=== PATIENT | female | born 1945 | race Caucasian/White ===

== ENCOUNTER 2018-06-25 13:41 | Emergency (ER) | payer MEDICARE ==
[2018-06-25] MEDS ORDERED: ONDANSETRON 4 MG/2 ML VIAL IVP STA (13:49)
--- NOTE | 2018-06-25 13:58 | ED ---
General Adult HPI - General Chief complaint: Nausea/Vomiting/Diarrhea Stated complaint: Dehyrdated Time Seen by Provider: 06/25/18 13:49 Source: patient Mode of arrival: ambulatory Limitations: no limitations - Related Data Home Medications Medication Instructions Recorded Confirmed Losartan Potassium [Cozaar] 100 mg PO DAILY 05/07/15 06/25/18 Metoprolol Tartrate [Lopressor] 50 mg PO BID 05/07/15 06/25/18 Potassium Chloride [Klor-Con 10] 10 meq PO DAILY 05/07/15 06/25/18 DULoxetine HCL [Cymbalta] 60 mg PO DAILY 06/25/18 06/25/18 Hydrochlorothiazide 12.5 mg PO DAILY 06/25/18 06/25/18 Simvastatin [Zocor] 40 mg PO DAILY 06/25/18 06/25/18 Previous Rx's Medication Instructions Recorded Metoclopramide [Reglan] 10 mg PO TID #12 tab 06/25/18 Allergies Allergy/AdvReac Type Severity Reaction Status Date / Time duloxetine Allergy Unknown Verified 06/25/18 14:47 Review of Systems ROS Statement: Those systems with pertinent positive or pertinent negative responses have been documented in the HPI. ROS Other: All systems not noted in ROS Statement are negative. Past Medical History Past Medical History: Hyperlipidemia, Hypertension History of Any Multi-Drug Resistant Organisms: None Reported Past Surgical History: No Surgical Hx Reported Past Psychological History: Depression Smoking Status: Never smoker Past Alcohol Use History: None Reported Past Drug Use History: None Reported General Exam Limitations: no limitations Course Vital Signs 06/25/18 06/25/18 06/25/18 13:44 15:03 16:23 Temperature 98.1 F 98.2 F Pulse Rate 78 69 61 Respiratory 20 18 18 Rate Blood Pressure 201/81 161/85 145/71 O2 Sat by Pulse 99 100 99 Oximetry Medical Decision Making - Medical Decision Making Dictation was produced using Loc[employer] dictation software. please excuse any grammatical, word or spelling errors. Chief Complaint: 72-year-old female with past medical history of hypertension and dyslipidemia presents with nausea and vomiting. History of Present Illness: 72-year-old female. She is had symptoms of nausea and vomiting since yesterday. Patient has any abdominal pain. Patient states that she has been having flulike symptoms over the past 2-3 days. Patient states she is unable to take her medications secondary to the vomiting. States her vomiting is nonbilious not bloody. No diarrhea. Patient denies any abdominal pain. Patient denies any surgeries in the past. Denies any exacerbating or mitigating factors. The ROS documented in this emergency department record has been reviewed and confirmed by me. Those systems with pertinent positive or negative responses have been documented in the HPI. All other systems are other negative and/or noncontributory. PHYSICAL EXAM: General Impression: Alert and oriented x3, nauseated HEENT: Normocephalic atraumatic, extra-ocular movements intact, pupils equal and reactive to light bilaterally, mucous membranes moist. Cardiovascular: Heart regular rate and rhythm, S1&S2 audible, no murmurs, rubs or gallops Chest: Lungs clear to auscultation bilaterally, no rhonchi, no wheeze, no rales Abdomen: Bowel sounds present, abdomen soft, non-tender, non-distended, no organomegaly Musculoskeletal: Pulses present and equal in all extremities, no peripheral edema Motor: Power 5/5 bilaterally, no focal deficits noted Neurological: CN II-XII grossly intact, no focal motor or sensory deficits noted Skin: Intact with no visualized rashes Psych: Normal affect and mood ED course: 72-year-old female chief complaint of nausea and vomiting. Upon arrival shows blood pressure to 1/81, rest of vital signs within acceptable limits.labs are unremarkable. Patient given intravenous fluids, antiemetics. Urinalysis unremarkable. Patient reevaluated with improvement of symptoms. Patient given prescription for Reglan. Advised to follow-up with primary care physician upon discharge. Patient tolerate by mouth bedside prior to discharge. Patient an George without consultations. EKG interpretation: Ventricular rate 74, normal sinus rhythm, LA interval 172, care is 140, QTc 499. No LA prolongation, no QTC prolongation, no ST or T-wave changes noted. EKG compared to 05/07/2015 showing no changes. Overall, this EKG is unremarkable - Lab Data Result diagrams: 06/25/18 14:08 06/25/18 14:08 Lab Results 06/25/18 06/25/18 06/25/18 Range/Units 14:08 14:08 16:51 WBC 6.7 (3.8-10.6) k/uL RBC 4.62 (3.80-5.40) m/uL Hgb 15.3 (11.4-16.0) gm/dL Hct 45.9 (34.0-46.0) % MCV 99.6 (80.0-100.0) fL MCH 33.2 (25.0-35.0) pg MCHC 33.3 (31.0-37.0) g/dL RDW 12.2 (11.5-15.5) % Plt Count 183 (150-450) k/uL Neutrophils % 66 % Lymphocytes % 29 % Monocytes % 3 % Eosinophils % 0 % Basophils % 0 % Neutrophils # 4.4 (1.3-7.7) k/uL Lymphocytes # 1.9 (1.0-4.8) k/uL Monocytes # 0.2 (0-1.0) k/uL Eosinophils # 0.0 (0-0.7) k/uL Basophils # 0.0 (0-0.2) k/uL Sodium 140 (137-145) mmol/L Potassium 4.4 (3.5-5.1) mmol/L Chloride 106 (98-107) mmol/L Carbon Dioxide 25 (22-30) mmol/L Anion Gap 9 mmol/L BUN 16 (7-17) mg/dL Creatinine 0.62 (0.52-1.04) mg/dL Est GFR (CKD-EPI)AfAm >90 (>60 ml/min/1.73 sqM) Est GFR (CKD-EPI)NonAf 90 (>60 ml/min/1.73 sqM) Glucose 167 H (74-99) mg/dL Calcium 10.1 (8.4-10.2) mg/dL Magnesium 1.9 (1.6-2.3) mg/dL Total Bilirubin 0.9 (0.2-1.3) mg/dL AST 35 (14-36) U/L ALT 29 (9-52) U/L Alkaline Phosphatase 86 (38-126) U/L Total Protein 7.6 (6.3-8.2) g/dL Albumin 4.8 (3.5-5.0) g/dL Lipase 126 (23-300) U/L Urine Color Yellow Urine Appearance Clear (Clear) Urine pH 7.5 (5.0-8.0) Ur Specific Logan 1.020 (1.001-1.035) Urine Protein 2+ H (Negative) Urine Glucose (UA) Negative (Negative) Urine Ketones 2+ H (Negative) Urine Blood Negative (Negative) Urine Nitrite Negative (Negative) Urine Bilirubin Negative (Negative) Urine Urobilinogen <2.0 (<2.0) mg/dL Ur Leukocyte Esterase Negative (Negative) Urine RBC 13 H (0-5) /hpf Urine WBC 2 (0-5) /hpf Urine Mucus Few H (None) /hpf Disposition Clinical Impression: Nausea & vomiting Disposition: HOME SELF-CARE Condition: Good Instructions (If sedation given, give patient instructions): Acute Nausea and Vomiting (ED) Prescriptions: Metoclopramide [Reglan] 10 mg PO TID #12 tab Is patient prescribed a controlled substance at d/c from ED?: No Referrals: Booker Epstein MD [Primary Care Provider] - 1-2 days Time of Disposition: 16:53
[2018-06-25 14:45] LABS: Basophils % (A) 0 %; Eosinophils % (A) 0 %; HCT 45.9 % (34.0-46.0); HGB 15.3 gm/dL (11.4-16.0); Lymphocytes # (A) 1.9 k/uL (1.0-4.8); Lymphocytes % (A) 29 %; MCH 33.2 pg (25.0-35.0); MCHC 33.3 g/dL (31.0-37.0); MCV 99.6 fL (80.0-100.0); Mean Platelet Volume 7.2; Monocytes # (A) 0.2 k/uL (0-1.0); Monocytes % (A) 3 %; Neutrophils # (A) 4.4 k/uL (1.3-7.7); Neutrophils % (A) 66 %; Platelet Count 183 k/uL (150-450); RBC 4.62 m/uL (3.80-5.40); RDW 12.2 % (11.5-15.5); WBC 6.7 k/uL (3.8-10.6)
[2018-06-25 14:55] LABS: ALT 29 U/L (9-52); AST 35 U/L (14-36); Albumin 4.8 g/dL (3.5-5.0); Alkaline Phosphatase 86 U/L (38-126); Anion Gap 9 mmol/L; Blood Urea Nitrogen 16 mg/dL (7-17); Calcium 10.1 mg/dL (8.4-10.2); Carbon Dioxide 25 mmol/L (22-30); Chloride 106 mmol/L (98-107); Glucose 167 mg/dL (74-99); Lipase 126 U/L (23-300); Magnesium 1.9 mg/dL (1.6-2.3); Potassium 4.4 mmol/L (3.5-5.1); Sodium 140 mmol/L (137-145); Total Bilirubin 0.9 mg/dL (0.2-1.3); Total Protein 7.6 g/dL (6.3-8.2)
[2018-06-25] MEDS ORDERED: METOCLOPRAMIDE 5 MG/ML 2 ML VIAL IVP STA (14:55)
--- NOTE | 2018-06-25 14:57 | XR ---
Abdomen HISTORY: Nausea and vomiting Frontal view of the abdomen on 2 images correlated to prior abdomen 05/07/2015 Surgical clips are present in the right groin. Multiple calcifications are present within the pelvis, many of these are likely phleboliths. No evident bowel obstruction or pneumoperitoneum. Lung bases a re clear. Cardiac leads present. Apical scarring vascular calcifications noted in the aorta. Degenerative disc changes in the visualized spine, there is mild spinal curvature. IMPRESSION: Nonobstructive bowel gas pattern.
[2018-06-25] MEDS ORDERED: MAGNESIUM OXIDE 400 MG TAB PO STA (15:00)
[2018-06-25 15:04] VITALS: RESP 18
[2018-06-25 16:25] VITALS: TEMP 98.2
[2018-06-25 17:13] LABS: Appearance,Urine Clear (Clear); Bilirubin,Urine Negative (Negative); Blood,Urine Negative (Negative); Color,Urine Yellow; Glucose,Urine (UA) Negative (Negative); Ketones,Urine 2+ (Negative); Leukocyte Esterase,Urine Negative (Negative); Mucus,Urine Few /hpf; Nitrite,Urine Negative (Negative); PH, Urine 7.5 (5.0-8.0); Protein,Urine 2+ (Negative); RBC,Urine 13 /hpf (0-5); Urobilinogen,Urine <2.0 mg/dL (<2.0)
[2018-06-25 17:36] VITALS: BP 147/83; PULSE 68
== END 2018-06-25 17:35 | disposition home or self-care (01) ==
LOC: EC 13:41
DX: R11.2 Nausea with vomiting, unspecified (principal); E78.5 Hyperlipidemia, unspecified; I10 Essential (primary) hypertension; F32.9 Major depressive disorder, single episode, unspecified; Z79.899 Other long term (current) drug therapy; Z88.8 Allergy status to other drugs, medicaments and biological substances
CPT/HCPCS: 36415; 93005; 80053; 83690; 83735; 85025; 81001; 74018; 99284; 96374; 96375; J2765; J2405

== ENCOUNTER → 2019-05-02 | Outpatient (CLI) | payer MEDICARE ==
[2019-05-02 11:41] LABS: Basophils % (A) 0 %; Eosinophils # (A) 0.1 k/uL (0-0.7); Eosinophils % (A) 2 %; HCT 41.8 % (34.0-46.0); HGB 14.1 gm/dL (11.4-16.0); Lymphocytes # (A) 1.8 k/uL (1.0-4.8); Lymphocytes % (A) 36 %; MCH 33.8 pg (25.0-35.0); MCHC 33.8 g/dL (31.0-37.0); MCV 100.1 fL (80.0-100.0); Mean Platelet Volume 6.7; Monocytes # (A) 0.2 k/uL (0-1.0); Monocytes % (A) 4 %; Neutrophils # (A) 2.8 k/uL (1.3-7.7); Neutrophils % (A) 56 %; Platelet Count 184 k/uL (150-450); RBC 4.17 m/uL (3.80-5.40); WBC 5.1 k/uL (3.8-10.6)
[2019-05-02 11:49] LABS: Appearance,Urine Clear (Clear); Bacteria,Urine Rare /hpf; Bilirubin,Urine Negative (Negative); Blood,Urine Negative (Negative); Color,Urine Yellow; Glucose,Urine (UA) Negative (Negative); Ketones,Urine Negative (Negative); Leukocyte Esterase,Urine Moderate (Negative); Mucus,Urine Rare /hpf; Nitrite,Urine Negative (Negative); PH, Urine 7.5 (5.0-8.0); Protein,Urine Negative (Negative); RBC,Urine 5 /hpf (0-5); Specific Gravity,Urine 1.015 (1.001-1.035); Squamous Epithelial Cell,Urine 1 /hpf (0-4); Urobilinogen,Urine <2.0 mg/dL (<2.0); WBC,Urine 3 /hpf (0-5)
[2019-05-02 18:00] LABS: African American GFR (CKD) 84.2 (60.0-200.0); Albumin 4.3 g/dL (3.80-4.90); Albumin/Globulin Ratio 2.26 (1.60-3.17); Anion Gap 6.8 mmol/L (4.00-12.00); Calcium 9.6 mg/dL (8.7-10.3); Carbon Dioxide 29.2 mmol/L (21.6-31.8); Chol/HDL Ratio 2.91; Globulin 1.9 g/dL (1.6-3.3); LDL Cholesterol,Calculated 98.2 mg/dL (0.0-131.0); Non-African American GFR(CKD) 72.6 (60.0-200.0); Potassium 3.8 mmol/L (3.5-5.5); Total Bilirubin 0.8 mg/dL (0.3-1.2); Total Protein 6.2 g/dL (6.2-8.2); VLDL Calculation 23.8 mg/dL (5.00-40.00)
== END | disposition home or self-care (01) ==
LOC: LABWHC1 10:02
PROVIDERS: ATTEND Orthopaedic Surgery
DX: E55.9 Vitamin D deficiency, unspecified (principal); M79.671 Pain in right foot; S92.354D Nondisplaced fracture of fifth metatarsal bone, right foot, subsequent encounter for fracture with routine healing
CPT/HCPCS: 36415; 80053; 80061; 81001; 82306; 84443; 85025

== ENCOUNTER → 2023-01-16 | Outpatient (CLI) | payer MEDICARE ==
--- NOTE | 2023-01-18 08:48 | CA ---
Transthoracic Echo Report Name: Ca Duckworth Age: 77 Gender: F : 1945 Exam Date: 01/16/2023 15:08 Exam Location: [place] [facility] Ht (in): 63 Wt (lb): 180 Ordering Physician: Price Mcginnis DO Attending/Referring Phys: Mix House Tender Alicia Davalos [facility] Procedure CPT: Indications: I48.91 ARTIAL FIBRILLATION Cardiac Hx: Technical Quality: Fair Contrast 1: Total Dose (mL): Contrast 2: Total Dose (mL): MEASUREMENTS (Male / Female) Normal Values 2D ECHO LV Diastolic Diameter PLAX 3.8 cm 4.2 - 5.9 / 3.9 - 5.3 cm LV Systolic Diameter PLAX 3.3 cm IVS Diastolic Thickness 0.8 cm 0.6 - 1.0 / 0.6 - 0.9 cm LVPW Diastolic Thickness 1.1 cm 0.6 - 1.0 / 0.6 - 0.9 cm LV Relative Wall Thickness 0.5 LVOT Diameter 2.1 cm LV Diastolic Volume MOD BP 62.8 cm??? 67 - 155 / 56 - 104 cm??? LV Systolic Volume MOD BP 40.8 cm??? 22 - 58 / 19 - 49 cm??? LV Ejection Fraction MOD BP 35.1 % >= 55 % LV Cardiac Index MOD BP 1024.4 cm???/min???m??? LV Diastolic Volume MOD 4C 53.2 cm??? LV Systolic Volume MOD 4C 37.6 cm??? LV Ejection Fraction MOD 4C 29.5 % LV Cardiac Index MOD 4C 728.9 cm???/min???m??? LV Diastolic Length 4C 7.6 cm LV Systolic Length 4C 6.7 cm LV Diastolic Volume MOD 2C 73.4 cm??? LV Systolic Volume MOD 2C 44.4 cm??? LV Ejection Fraction MOD 2C 39.5 % LV Cardiac Index MOD 2C 1346.8 cm???/min???m??? LV Diastolic Length 2C 7.7 cm LV Systolic Length 2C 6.7 cm Ascending Aorta Diameter 3.1 cm M-MODE Aortic Root Diameter MM 2.7 cm LA Systolic Diameter MM 4.4 cm LA Ao Ratio MM 1.6 AV Cusp Separation MM 1.9 cm DOPPLER AV Peak Velocity 112.0 cm/s AV Peak Gradient 5.0 mmHg AV Mean Velocity 77.2 cm/s AV Mean Gradient 2.7 mmHg AV Velocity Time Integral 20.3 cm LVOT Peak Velocity 85.5 cm/s LVOT Peak Gradient 2.9 mmHg LVOT Velocity Time Integral 15.2 cm LVOT Stroke Volume 51.0 cm??? LVOT Stroke Volume Index 27.6 ml/m??? LVOT Cardiac Index 2369.1 cm???/min???m??? AV Area Cont Eq vti 2.5 cm??? AV Area Cont Eq pk 2.6 cm??? Mitral E Point Velocity 95.7 cm/s MV Deceleration Time 226.1 ms LV E' Lateral Velocity 7.5 cm/s Mitral E to LV E' Lateral Ratio 12.8 LV E' Septal Velocity 6.0 cm/s Mitral E to LV E' Septal Ratio 16.0 TR Peak Velocity 231.1 cm/s TR Peak Gradient 21.4 mmHg Right Atrial Pressure 8.0 mmHg Pulmonary Artery Systolic Pressu 29.4 mmHg Right Ventricular Systolic Press 29.4 mmHg FINDINGS Left Ventricle Mildly increased posterior wall thickness. Left ventricular cavity size normal. Severely decreased left ventricular ejection fraction. Left ventricular ejection fraction is estimated at 30-35%. Mid to distal inferior and inferoseptal wall appears hypokinetic Right Ventricle Normal right ventricular size. Right Atrium Normal right atrial size. Left Atrium Moderate left atrial dilatation. Mitral Valve Mitral valve thickened. Trace mitral regurgitation. Aortic Valve Aortic valve sclerosis. Trileaflet aortic valve. No aortic regurgitation. Tricuspid Valve Structurally normal tricuspid valve. Trace to mild tricuspid regurgitation. Pulmonic Valve Pulmonic valve not well visualized. Pericardium No pericardial effusion. Aorta Normal size aortic root and proximal ascending aorta. CONCLUSIONS Normal LV size. Severe LV dysfunction with LVEF estimated at 30-35% Mid to distal inferior and inferoseptal wall hypokinesia Moderate left atrial dilatation No significant valvular disease Patient is in A. fib during the study with heart rate around 85 beats a minute No prior echo to compare Previewed by: Dr Craig Hatch (Electronically Signed) Final Date: 18 January 2023 08:47
== END | disposition home or self-care (01) ==
LOC: RADECHMAIN 14:47
PROVIDERS: ATTEND Family Medicine
DX: I08.1 Rheumatic disorders of both mitral and tricuspid valves (principal); I48.91 Unspecified atrial fibrillation
CPT/HCPCS: 93306

== ENCOUNTER 2023-10-12 14:02 | Inpatient (IN) | payer MEDICARE ==
--- NOTE | 2023-10-12 14:29 | ED ---
Chest Pain HPI - General Source: patient, family, RN notes reviewed Mode of arrival: wheelchair Limitations: no limitations <Kayla Wilson - Last Filed: 10/12/23 14:28> <Lamont Romo - Last Filed: 10/12/23 17:14> - General Stated Complaint: AFIB Time Seen by Provider: 10/12/23 14:28 - History of Present Illness Initial Comments: Note: 78-year-old female presented to the ER with a chief complaint of chest pain and shortness of breath. Patient has a past medical history significant for atrial fibrillation and is currently taking Eliquis. She is scheduled for an ablation on with Dr. Gibbs. reports for the past 24 hours she has been having difficulty sleeping as she goes into A-fib soon as she lays down. (Kayla Wilson) This is a 78-year-old female who presents to the emergency department with a chief complaint of being awake and on my because of palpitations. Patient currently has no complaints she denies chest pain or shortness of breath even though it states from the triage vazquez that she was having shortness of breath and chest pain patient states she was just being kept awake because of what she believed to be her A-fib and she supposed to have a scheduled ablation on . Patient denies any fever or chills. Patient is a very poor historian secondary to dementia After family arrived patient's family stated that she kept complaining of chest pain throughout the evening and any exertion made it worse. (Lamont Romo) - Related Data Home Medications Medication Instructions Recorded Confirmed Losartan Potassium [Cozaar] 100 mg PO DAILY 05/07/15 10/12/23 Amiodarone [Cordarone] 200 mg PO BID 10/12/23 10/12/23 Apixaban [Eliquis] 5 mg PO BID 10/12/23 10/12/23 Atorvastatin [Lipitor] 20 mg PO HS 10/12/23 10/12/23 Donepezil [Aricept] 5 mg PO HS 10/12/23 10/12/23 Furosemide [Lasix] 20 mg PO BID 10/12/23 10/12/23 Memantine [Namenda] 10 mg PO BID 10/12/23 10/12/23 Metoprolol Succinate [Metoprolol 25 mg PO DAILY 10/12/23 10/12/23 Succinate ER] Venlafaxine HCl [Effexor XR] 75 mg PO DAILY 10/12/23 10/12/23 traZODone HCL [Desyrel] 50 mg PO HS 10/12/23 10/12/23 Allergies Allergy/AdvReac Type Severity Reaction Status Date / Time duloxetine AdvReac "Lots' of Verified 10/12/23 16:34 side effects, brand is ok Review of Systems ROS Other: All systems not noted in ROS Statement are negative. <Kayla Wilson - Last Filed: 10/12/23 14:28> ROS Other: All systems not noted in ROS Statement are negative. <Lamont Romo - Last Filed: 10/12/23 17:14> ROS Statement: Those systems with pertinent positive or pertinent negative responses have been documented in the HPI. Past Medical History Past Medical History: Hyperlipidemia, Hypertension History of Any Multi-Drug Resistant Organisms: None Reported Past Surgical History: No Surgical Hx Reported Past Psychological History: Depression Past Alcohol Use History: None Reported Past Drug Use History: None Reported <Kayla Wilson - Last Filed: 10/12/23 14:28> General Exam <Kayla Wilson - Last Filed: 10/12/23 14:28> <Lamont Romo - Last Filed: 10/12/23 17:14> - General Exam Comments Initial Comments: Visual Physical Exam General: Well-appearing, nontoxic, no acute distress. Head: Normocephalic, atraumatic Eyes: PERRLA, EOMI ENT: Airway patent Chest: Nonlabored breathing Skin: No visual rash, normal skin tone Neuro: Alert and oriented 3 Musculoskeletal: No gross abnormalities (Kayla Wilson) GENERAL: Patient is well-developed and well-nourished. Patient is nontoxic and well- hydrated and is in no acute distress. ENT: Neck is soft and supple. No significant lymphadenopathy is noted. Oropharynx is clear. Moist mucous membranes. Neck has full range of motion without eliciting any pain. EYES: The sclera were anicteric and conjunctiva were pink and moist. Extraocular movements were intact and pupils were equal round and reactive to light. Eyelids were unremarkable. PULMONARY: Unlabored respirations. Good breath sounds bilaterally. No audible rales rhonchi or wheezing was noted. CARDIOVASCULAR: There is a regular rate and rhythm without any murmurs gallops or rubs. ABDOMEN: Soft and nontender with normal bowel sounds. SKIN: Skin is clear with no lesions or rashes and otherwise unremarkable. NEUROLOGIC: Patient is alert and oriented x 2. Cranial nerves II through XII are grossly intact. Motor and sensory are also intact. Normal speech, volume and content. Symmetrical smile. MUSCULOSKELETAL: Normal extremities with adequate strength and full range of motion. LYMPHATICS: No significant lymphadenopathy is noted PSYCHIATRIC: Normal psychiatric evaluation. (Lamont Romo) Course Vital Signs 10/12/23 14:56 Temperature 98.3 F Pulse Rate 99 Respiratory 20 Rate Blood Pressure 122/85 O2 Sat by Pulse 98 Oximetry Chest Pain MDM <Kayla Wilson - Last Filed: 10/12/23 14:28> <Lamont Romo - Last Filed: 10/12/23 17:14> - MDM I performed the quick note portion of this chart. Electronically signed by Kayla Wilson PA-C (Kayla Wilson) EKG is interpreted by myself. EKG shows atrial fibrillation at 94 bpm QRS is 153 QT interval is 423 QTc is 475. Patient has a left bundle branch block which was seen on previous EKG Was pt. sent in by a medical professional or institution ([facility]LE[facility]ure, FOXING CUTTING MACHINE OPERATOR, urgent care, hospital, or prison...) When possible be specific @ -No Did you speak to anyone other than the patient for history (EMS, parent, family, police, friend...)? What history was obtained from this source @ -Patient's friend came in and gave most of the history because of patient's severe dementia Did you review nursing and triage notes (agree or disagree)? Why? @ -I reviewed and agree with nursing and triage notes Were old charts reviewed (outside hosp., previous admission, EMS record, old EKG, old radiological studies, urgent care reports/EKG's, prison records)? Report findings @ -I reviewed an old EKG and did confirm that the left bundle branch block that I see today was on previous EKGs. Differential Diagnosis (chest pain, altered mental status, abdominal pain women, abdominal pain men, vaginal bleeding, weakness, fever, dyspnea, syncope, headache, dizziness, GI bleed, back pain, seizure, CVA, palpatations, mental health, musculoskeletal)? @ -Differential Chest Pain: Stable Angina, Unstable Angina, STEMI, NSTEMI Aortic Dissection, Pneumothorax, Musculoskeletal, Esophageal Spasm GERD, Cholecystitis, Pancreatitis, Zoster, this is not meant to be an all-inclusive list. EKG interpreted by me (3pts min.). @ -As above X-rays interpreted by me (1pt min.). @ -None done CT interpreted by me (1pt min.). @ -None done U/S interpreted by me (1pt. min.). @ -None done What testing was considered but not performed or refused? (CT, X-rays, U/S, labs)? Why? @ -None What meds were considered but not given or refused? Why? @ -None Did you discuss the management of the patient with other professionals (professionals i.e. , PA, FOXING CUTTING MACHINE OPERATOR, lab, RT, psych nurse, social research assistant, safety clothing and equipment developer, teacher, search and rescue officer, social work case manager)? Give summary @ -[facility] Was smoking cessation discussed for >3mins.? @ -No Was critical care preformed (if so, how long)? @ -No Were there social determinants of health that impacted care today? How? (Homelessness, low income, unemployed, alcoholism, drug addiction, transportation, low edu. Level, literacy, decrease access to med. care, [facility], rehab)? @ -No Was there de-escalation of care discussed even if they declined (Discuss DNR or withdrawal of care, Hospice)? DNR status @ -No What co-morbidities impacted this encounter? (DM, HTN, Smoking, COPD, CAD, Cancer, CVA, ARF, Chemo, Hep., AIDS, mental health diagnosis, sleep apnea, morbid obesity)? @ -None Was patient admitted / discharged? Hospital course, mention meds given and route, prescriptions, significant lab abnormalities, going to OR and other pertinent info. @ -Patient's lab work came back within normal range except for a little bit of low potassium which I replaced. Patient no longer had any chest pain. [facility] I wrote admitting orders Undiagnosed new problem with uncertain prognosis? @ -No Drug Therapy requiring intensive monitoring for toxicity (Heparin, Nitro, Insulin, Cardizem)? @ -No Were any procedures done? @ -No Diagnosis/symptom? @ -Chest pain Acute, or Chronic, or Acute on Chronic? @ -Acute Uncomplicated (without systemic symptoms) or Complicated (systemic symptoms)? @ -Complicated Side effects of treatment? @ -No Exacerbation, Progression, or Severe Exacerbation? @ -No Poses a threat to life or bodily function? How? (Chest pain, USA, NC, pneumonia, PE, COPD, DKA, ARF, appy, cholecystitis, CVA, Diverticulitis, Homicidal, Suicidal, threat to staff... and all critical care pts) @ -Yes this can lead to an NC which can lead to endorgan dysfunction or (Lamont Romo) Disposition <Kayla Wilson - Last Filed: 10/12/23 14:28> Time of Disposition: 17:04 <Lamont Romo - Last Filed: 10/12/23 17:14> Clinical Impression: Chest pain, Palpitations, Hypokalemia Disposition: ADMITTED IP TO THIS HOSP Referrals: Price Mcginnis DO [Primary Care Provider] - 1-2 days
--- NOTE | 2023-10-12 15:43 | XR ---
EXAMINATION TYPE: XR chest 2V DATE OF EXAM: 10/12/2023 3:38 PM CLINICAL INDICATION:Female, 78 years old with history of Chest Pain; COMPARISON: Chest radiographs from 10/12/2023. TECHNIQUE: XR chest 2V Frontal and lateral views of the chest. FINDINGS: Lungs/Pleura: There is no evidence of pleural effusion, focal consolidation, or pneumothorax. Pulmonary vascularity: Unremarkable. Heart/mediastinum: Cardiomediastinal silhouette is unremarkable. Musculoskeletal: No acute osseous pathology. Increased kyphotic curvature to the thorax. Other findings: None IMPRESSION: 1. Possible small pleural effusions versus atelectasis in the lung bases. 2. COPD changes.
[2023-10-12 15:57] LABS: Basophils # (A) 0.1 k/uL (0-0.2); Basophils % (A) 1 %; Eosinophils # (A) 0.1 k/uL (0-0.7); Eosinophils % (A) 1 %; HCT 44.8 % (34.0-46.0); HGB 14.5 gm/dL (11.4-16.0); Lymphocytes # (A) 2.6 k/uL (1.0-4.8); Lymphocytes % (A) 35 %; MCH 33.8 pg (25.0-35.0); MCHC 32.4 g/dL (31.0-37.0); MCV 104.4 fL (80.0-100.0); Macrocytosis Slight; Mean Platelet Volume 8.8; Monocytes # (A) 0.4 k/uL (0-1.0); Monocytes % (A) 5 %; Neutrophils # (A) 4.2 k/uL (1.3-7.7); Neutrophils % (A) 56 %; Platelet Count 194 k/uL (150-450); RBC 4.29 m/uL (3.80-5.40); RDW 13.2 % (11.5-15.5); WBC 7.6 k/uL (3.8-10.6)
[2023-10-12 16:07] LABS: ALT 56 U/L (4-34); AST 57 U/L (14-36); African American GFR (CKD) 54 (>60 ml/min/1.73 sqM); Albumin 4.1 g/dL (3.5-5.0); Alkaline Phosphatase 175 U/L (38-126); Anion Gap 9 mmol/L; Blood Urea Nitrogen 25 mg/dL (7-17); Calcium 9.2 mg/dL (8.4-10.2); Carbon Dioxide 26 mmol/L (22-30); Chloride 108 mmol/L (98-107); Glucose 97 mg/dL (74-99); INR 1.3 (<1.2); Non-African American GFR(CKD) 47 (>60 ml/min/1.73 sqM); Partial Thromboplastin Time 23.4 sec (22.0-30.0); Potassium 3.3 mmol/L (3.5-5.1); Prothrombin Time 13.4 sec (10.0-12.5); Sodium 143 mmol/L (137-145); Total Protein 6.7 g/dL (6.3-8.2)
[2023-10-12] MEDS ORDERED: NITROGLYCERIN SL TABS 0.4 MG TAB SUBLINGUAL PRN (17:05)
[2023-10-12] MEDS ORDERED: Potassium Replacement Protocol 1 EACH MISC MISCELLANE PRN (17:14)
[2023-10-12] MEDS: ASPIRIN 81 MG PO STA (17:23)
[2023-10-12] MEDS: POTASSIUM CHLORIDE ER 20 MEQ TAB.ER PO SCH (17:24)
[2023-10-12] MEDS: NITROGLYCERIN OINT 1 INCH/GM PACKET TOPICAL SCH (17:24)
[2023-10-12] MEDS: FUROSEMIDE 20 MG TAB PO SCH (18:39)
[2023-10-12] MEDS: traZODone HCL 50 MG TAB PO SCH (22:46)
[2023-10-12] MEDS: ATORVASTATIN 20 MG TAB PO SCH (22:46)
[2023-10-12] MEDS: APIXABAN 5 MG TAB PO SCH (22:46)
[2023-10-12] MEDS: AMIODARONE 200 MG TAB PO SCH (22:47)
[2023-10-12] MEDS: MEMANTINE 10 MG TAB PO SCH (22:47)
[2023-10-13] MEDS ORDERED: HEPARIN SODIUM,PORCINE (1 ML) 2,500 UNIT in SODIUM CHLORIDE 0.9% 250 ML IRRIGATION PRN (07:00)
[2023-10-13] MEDS ORDERED: HEPARIN SODIUM,PORCINE 10,000 UNIT in SODIUM CHLORIDE 0.9% 1,000 ML IRRIGATION PRN (07:00)
[2023-10-13] MEDS: ACETAMINOPHEN TAB 325 MG TAB PO STA (07:51)
[2023-10-13] MEDS ORDERED: ASPIRIN 325 MG TAB PO SCH (09:00)
[2023-10-13] MEDS: METOPROLOL SUCCINATE (ER) 25 MG TAB.ER.24H PO SCH (09:15)
--- NOTE | 2023-10-13 09:57 | P.CRDCN ---
History of Present Illness History of present illness: HISTORY OF PRESENT ILLNESS: This is a 78-year-old female with a past medical history significant for cardiomyopathy, congestive heart failure, atrial fibrillation, hypertension, and dementia. Patient follows in the office with Dr. Gibbs. We have been asked to see the patient in consultation for chest pain and atrial fibrillation. Patient examined at the bedside. The patient is a poor historian. There is no family present at the time of examination. According to the ER, patient presented to the hospital with chest pain and palpitations. The patient states she is unable to recall what symptoms brought her to the hospital. Her main complaint is that she has been unable to sleep for the past few days. She also stated that she was unable to sleep last night as staff was in her room frequently and she reports feeling tired this morning. She denies any chest pain or pressure at the time of examination. She does report feeling mild palpitations. It is noted that the patient was just seen in the office on 10/06/2023. Plan was for cardiac catheterization secondary to worsening ejection fraction. This is scheduled for 10/15/2023 patient was also started on amiodarone taper. Additional plans for VÍCTOR and cardioversion in the next 2 to 3 weeks and long- term plans for possible biventricular AICD. DIAGNOSTICS: - EKG reveals atrial fibrillation with left bundle branch block. - Chest xray possible small pleural effusions versus atelectasis in the lung bases. COPD changes.. - Laboratory data: WBC 7.6. Hemoglobin 14.5. Platelet count 194. Sodium 143. Potassium 3.3. BUN 25. Creatinine 1.12. AST 57. ALT 56. Troponin negative x 3. - Current home cardiac medications include losartan 100 mg daily, amiodarone 200 mg twice a day, Lasix 20 mg twice a day, Eliquis 5 mg twice a day, Lipitor 20 mg at night, metoprolol succinate 25 mg daily. - Most recent echocardiogram obtained in December 2022 revealing ejection fraction 30 to 35%, mid to distal inferior and inferior septal wall hypokinesis, trace MR, trace to mild TR -Repeat echocardiogram performed in the office on 09/25/2023 revealed ejection fraction 20 to 25%, large hypokinetic area of inferior, inferior septal, and anterior septal meraz. Small hypokinetic area of the inferior lateral wall at the mid wall. There is small hypokinetic areas of the anterior and lateral meraz at the apex. -Patient underwent Lexiscan stress test in February 2023 which was negative for inducible ischemia. Ejection fraction of 35%. REVIEW OF SYSTEMS: At the time of my exam: CONSTITUTIONAL: Denies fever or chills. HEENT: Denies blurred vision, vision changes, or eye pain. Denies hemoptysis CARDIOVASCULAR: Denies chest pain. Denies orthopnea. Denies PND. Denies palpitations RESPIRATORY: Denies shortness of breath. GASTROINTESTINAL: Denies abdominal pain. Denies nausea or vomiting. HEMATOLOGIC: Denies bleeding disorders. GENITOURINARY: Denies any blood in urine. SKIN: Denies pruitis. Denies rash. PHYSICAL EXAM: VITAL SIGNS: Reviewed. GENERAL: Well-developed in no acute distress. HEENT: Head is normocephalic. Pupils are equal, round. Sclerae anicteric. Mucous membranes of the mouth are moist. Neck supple. No JVD or thyromegaly LUNGS: Respirations even and unlabored. Lungs essentially clear to auscultation bilaterally. HEART: Irregular rate and rhythm. S1 and S2 heard. ABDOMEN: Soft. Nondistended. Nontender. EXTREMITIES: Normal range of motion. No clubbing or cyanosis. Peripheral pulses intact. No lower extremity edema NEUROLOGIC: Awake and alert. Oriented x 3. ASSESSMENT: Palpitations Persistent atrial fibrillation Left bundle branch block Worsening cardiomyopathy, ischemic versus nonischemic, Chronic heart failure with reduced EF, currently euvolemic Hypertension Dementia PLAN: No need to repeat echocardiogram as this was performed in the office on 09/25/2023 Continue additional cardiac medications Hold Eliquis Patient to undergo cardiac cath this afternoon with Dr. Gibbs Further recommendations pending patient course Nurse practitioner note has been reviewed by physician. Signing provider agrees with the documented findings, assessment, and plan of care documented by DRESSING ROOM ATTENDANT as a scribe. Past Medical History Past Medical History: Hyperlipidemia, Hypertension History of Any Multi-Drug Resistant Organisms: None Reported Past Surgical History: No Surgical Hx Reported Past Psychological History: No Psychological Hx Reported Smoking Status: Never smoker Past Alcohol Use History: None Reported Past Drug Use History: None Reported Medications and Allergies Home Medications Medication Instructions Recorded Confirmed Type Losartan Potassium [Cozaar] 100 mg PO DAILY 05/07/15 10/12/23 History Amiodarone [Cordarone] 200 mg PO BID 10/12/23 10/12/23 History Apixaban [Eliquis] 5 mg PO BID 10/12/23 10/12/23 History Atorvastatin [Lipitor] 20 mg PO HS 10/12/23 10/12/23 History Donepezil [Aricept] 5 mg PO HS 10/12/23 10/12/23 History Furosemide [Lasix] 20 mg PO BID 10/12/23 10/12/23 History Memantine [Namenda] 10 mg PO BID 10/12/23 10/12/23 History Metoprolol Succinate [Metoprolol 25 mg PO DAILY 10/12/23 10/12/23 History Succinate ER] Venlafaxine HCl [Effexor XR] 75 mg PO DAILY 10/12/23 10/12/23 History traZODone HCL [Desyrel] 50 mg PO HS 10/12/23 10/12/23 History Allergies Allergy/AdvReac Type Severity Reaction Status Date / Time duloxetine AdvReac "Lots' of Verified 10/12/23 16:34 side effects, brand is ok Physical Exam Vitals: Vital Signs Temp Pulse Pulse Resp BP BP Pulse Ox 10/13/23 03:53 97.4 F L 97 17 124/92 95 10/12/23 20:56 97.3 F L 112 H 17 126/76 95 10/12/23 20:47 85 16 120/83 96 10/12/23 19:12 109 H 15 119/74 96 10/12/23 17:22 92 18 133/99 96 10/12/23 14:56 98.3 F 99 20 122/85 98 Intake and Output 10/12/23 10/13/23 10/13/23 22:59 06:59 14:59 Other: # Voids 1 1 Weight 73.482 kg Results 10/12/23 15:44 10/12/23 15:44 Cardiac Enzymes 10/12/23 10/12/23 10/12/23 Range/Units 15:44 15:44 19:14 AST 57 H (14-36) U/L Troponin I 0.025 0.023 (0.000-0.034) ng/mL 10/12/23 Range/Units 21:48 AST (14-36) U/L Troponin I 0.022 (0.000-0.034) ng/mL Coagulation 10/12/23 Range/Units 15:44 PT 13.4 H (10.0-12.5) sec APTT 23.4 (22.0-30.0) sec CBC 10/12/23 Range/Units 15:44 WBC 7.6 (3.8-10.6) k/uL RBC 4.29 (3.80-5.40) m/uL Hgb 14.5 (11.4-16.0) gm/dL Hct 44.8 (34.0-46.0) % Plt Count 194 (150-450) k/uL Comprehensive Metabolic Panel 10/12/23 Range/Units 15:44 Sodium 143 (137-145) mmol/L Potassium 3.3 L (3.5-5.1) mmol/L Chloride 108 H (98-107) mmol/L Carbon Dioxide 26 (22-30) mmol/L BUN 25 H (7-17) mg/dL Creatinine 1.12 H (0.52-1.04) mg/dL Glucose 97 (74-99) mg/dL Calcium 9.2 (8.4-10.2) mg/dL AST 57 H (14-36) U/L ALT 56 H (4-34) U/L Alkaline Phosphatase 175 H (38-126) U/L Total Protein 6.7 (6.3-8.2) g/dL Albumin 4.1 (3.5-5.0) g/dL Current Medications Generic Name Dose Route Start Last Admin Trade Name Freq PRN Reason Stop Dose Admin Amiodarone HCl 200 mg 10/12/23 21:00 10/12/23 22:47 Amiodarone 200 Mg Tab PO 200 mg BID ADAN Administration Apixaban 5 mg 10/12/23 21:00 10/12/23 22:46 Apixaban 5 Mg Tab PO 5 mg BID ADAN Administration Protocol Aspirin 325 mg 10/13/23 09:00 Aspirin 325 Mg Tab PO DAILY [facility] Atorvastatin Calcium 20 mg 10/12/23 21:00 10/12/23 22:46 Atorvastatin 20 Mg Tab PO 20 mg HS ADAN Administration Furosemide 20 mg 10/12/23 18:00 10/12/23 18:39 Furosemide 20 Mg Tab PO 20 mg BID@0900,1600 ADAN Administration Memantine 10 mg 10/12/23 21:00 10/12/23 22:47 Memantine 10 Mg Tab PO 10 mg BID ADAN Administration Metoprolol Succinate 25 mg 10/13/23 09:00 Metoprolol Succinate (Er) 25 Mg Tab.Er.24h PO DAILY ADAN Miscellaneous Information 1 each 10/12/23 17:14 Potassium Replacement Protocol 1 Each Misc MISCELLANE DAILY PRN Per Protocol Protocol Nitroglycerin 0.4 mg 10/12/23 17:05 Nitroglycerin Sl Tabs 0.4 Mg Tab SUBLINGUAL Q5M PRN Chest Pain Nitroglycerin 1 inch 10/12/23 18:00 10/13/23 05:10 Nitroglycerin Oint 1 Inch/Gm Packet TOPICAL Not Given Q6HR ADAN Trazodone HCl 50 mg 10/12/23 21:00 10/12/23 22:46 Trazodone Hcl 50 Mg Tab PO 50 mg HS ADAN Administration Intake and Output 10/12/23 10/13/23 10/13/23 22:59 06:59 14:59 Other: # Voids 1 1 Weight 73.482 kg 10/12/23 15:44 10/12/23 15:44
[2023-10-13] MEDS ORDERED: ALPRAZolam 0.5 MG TAB PO PRN (09:58)
[2023-10-13] MEDS ORDERED: NITROGLYCERIN SL TABS 0.4 MG TAB SUBLINGUAL PRN (09:58)
[2023-10-13] MEDS ORDERED: ALPRAZolam 0.25 MG TAB PO PRN (09:58)
[2023-10-13] MEDS: ASPIRIN 325 MG TAB PO STA (10:42)
[2023-10-13] MEDS: ATORVASTATIN 80 MG TAB PO STA (10:42)
[2023-10-13] MEDS: SODIUM CHLORIDE 0.9% 1,000 ML in EMPTY BAG 1 BAG IV SCH (10:43)
--- NOTE | 2023-10-13 11:29 | P.HPIM ---
History of Present Illness 78-year-old pleasant female came in with complaints of palpitations found to be in atrial fibrillation with rapid ventricular rate patient had hospitalization for the same complaint recently. Patient has history of cardiomyopathy with EF of around 20 to 25% patient denies any shortness of breath orthopnea or paroxysmal nocturnal dyspnea although chest x-ray did show mild pulmonary edema BNP is not available at this time. Patient also had some wall motion abnormalities because of which patient will require cardiac catheterization patient is also complaining of chest pressure-like sensation. Cardiology evaluated the patient they recommended cardiac catheterization during this hospitalization. Patient is on amiodarone and beta-viridiana for atrial fibrillation heart rate is slightly on the higher side. Patient's potassium is low at 3.3 patient is also on losartan 100 mg at home. Patient takes Aleve Eliquis at home which is being held and patient is on IV heparin at this time. REVIEW OF SYSTEMS: CONSTITUTIONAL: No fever, no malaise, no fatigue. HEENT: No recent visual problems or hearing problems. Denied any sore throat. CARDIOVASCULAR: No orthopnea, PND, irregularly irregular rhythm no syncope. PULMONARY: No shortness of breath, no cough, no hemoptysis. GASTROINTESTINAL: No diarrhea, no nausea, no vomiting, no abdominal pain. NEUROLOGICAL: No headaches, no weakness, no numbness. HEMATOLOGICAL: Denies any bleeding or petechiae. GENITOURINARY: Denies any burning micturition, frequency, or urgency. MUSCULOSKELETAL/RHEUMATOLOGICAL: Denies any joint pain, swelling, or any muscle pain. ENDOCRINE: Denies any polyuria or polydipsia. The rest of the 14-point review of systems is negative. PHYSICAL EXAMINATION: GENERAL: The patient is alert and oriented x3, not in any acute distress. Well developed, well nourished. HEENT: Pupils are round and equally reacting to light. EOMI. No scleral icterus. No conjunctival pallor. Normocephalic, atraumatic. No pharyngeal erythema. No thyromegaly. CARDIOVASCULAR: S1 and S2 present. No murmurs, rubs, or gallops. PULMONARY: Chest is clear to auscultation, no wheezing or crackles. ABDOMEN: Soft, nontender, nondistended, normoactive bowel sounds. No palpable organomegaly. MUSCULOSKELETAL: No joint swelling or deformity. EXTREMITIES: No cyanosis, clubbing, or pedal edema. NEUROLOGICAL: Gross neurological examination did not reveal any focal deficits. SKIN: No rashes. Assessment and plan -Persistent atrial fibrillation with rapid ventricular rate: Patient will be continued on beta-viridiana amiodarone cardiology evaluated the patient -Chest pressure-like sensation can be due to atrial fibrillation but patient had a decreased ejection fraction this year compared to last year because of which cardiology is planning on cardiac catheterization Eliquis is being held as mentioned above -Ischemic cardiomyopathy chronic systolic function without any acute exacerbation patient is euvolemic at this time continue with home dose of Lasix -Hypertension -Chronic left bundle branch block -Hyperlipidemia DVT prophylaxis: On IV heparin Past Medical History Past Medical History: Hyperlipidemia, Hypertension History of Any Multi-Drug Resistant Organisms: None Reported Past Surgical History: No Surgical Hx Reported Past Psychological History: No Psychological Hx Reported Smoking Status: Never smoker Past Alcohol Use History: None Reported Past Drug Use History: None Reported Medications and Allergies Home Medications Medication Instructions Recorded Confirmed Type Losartan Potassium [Cozaar] 100 mg PO DAILY 05/07/15 10/12/23 History Amiodarone [Cordarone] 200 mg PO BID 10/12/23 10/12/23 History Apixaban [Eliquis] 5 mg PO BID 10/12/23 10/12/23 History Atorvastatin [Lipitor] 20 mg PO HS 10/12/23 10/12/23 History Donepezil [Aricept] 5 mg PO HS 10/12/23 10/12/23 History Furosemide [Lasix] 20 mg PO BID 10/12/23 10/12/23 History Memantine [Namenda] 10 mg PO BID 10/12/23 10/12/23 History Metoprolol Succinate [Metoprolol 25 mg PO DAILY 10/12/23 10/12/23 History Succinate ER] Venlafaxine HCl [Effexor XR] 75 mg PO DAILY 10/12/23 10/12/23 History traZODone HCL [Desyrel] 50 mg PO HS 10/12/23 10/12/23 History Allergies Allergy/AdvReac Type Severity Reaction Status Date / Time duloxetine AdvReac "Lots' of Verified 10/12/23 16:34 side effects, brand is ok Physical Exam Vitals: Vital Signs Temp Pulse Pulse Resp BP BP Pulse Ox 10/13/23 08:00 116 H 16 10/13/23 07:00 97.5 F L 116 H 16 124/84 92 L 10/13/23 03:53 97.4 F L 97 17 124/92 95 10/12/23 20:56 97.3 F L 112 H 17 126/76 95 10/12/23 20:47 85 16 120/83 96 10/12/23 19:12 109 H 15 119/74 96 10/12/23 17:22 92 18 133/99 96 10/12/23 14:56 98.3 F 99 20 122/85 98 Intake and Output 10/12/23 10/13/23 10/13/23 22:59 06:59 14:59 Other: Voiding Method Toilet # Voids 1 1 Weight 73.482 kg Results CBC & Chem 7: 10/12/23 15:44 10/12/23 15:44 Labs: Abnormal Lab Results - Last 24 Hours (Table) 10/12/23 10/12/23 10/12/23 Range/Units 15:44 15:44 15:44 MCV 104.4 H (80.0-100.0) fL PT 13.4 H (10.0-12.5) sec INR 1.3 H (<1.2) Potassium 3.3 L (3.5-5.1) mmol/L Chloride 108 H (98-107) mmol/L BUN 25 H (7-17) mg/dL Creatinine 1.12 H (0.52-1.04) mg/dL AST 57 H (14-36) U/L ALT 56 H (4-34) U/L Alkaline Phosphatase 175 H (38-126) U/L Thrombosis Risk Factor Assmnt - Choose All That Apply Any of the Below Risk Factors Present?: Yes Each Factor Represents 1 point: Obesity (BMI >25) Other Risk Factors: Yes Each Risk Factor Represents 3 Points: Age 75 years or older Other congenital or acquired thrombophilia - If yes, enter type in comment: No Thrombosis Risk Factor Assessment Total Risk Factor Score: 4 Thrombosis Risk Factor Assessment Level: Moderate Risk
[2023-10-13 12:12] LABS: Chol/HDL Ratio 3.18 Ratio; LDL Cholesterol,Calculated 80.5 mg/dL (0.0-131.0); Magnesium 2.1 mg/dL (1.5-2.4); Potassium 4.1 mmol/L (3.5-5.5); VLDL Calculation 18.22 mg/dL (5.00-40.00)
[2023-10-13] MEDS: VENLAFAXINE HCL ER 75 MG CAP PO SCH (12:33)
[2023-10-13] MEDS ORDERED: LIDOCAINE 1% INJ 10MG/ML (20 ML MDV) ONE (13:29)
[2023-10-13] MEDS ORDERED: VERAPAMIL 2.5 MG/ML 2 ML AMP ONE (13:29)
[2023-10-13] MEDS ORDERED: HEPARIN SODIUM 1,000 UN/ML (10ML VL) ONE (13:30)
[2023-10-13] MEDS ORDERED: fentaNYL (PF) 50 MCG/ML 2 ML AMP ONE (13:30)
[2023-10-13] MEDS: SODIUM CHLORIDE 0.9% 1,000 ML IV ONE (14:14)
[2023-10-13] MEDS: LIDOCAINE 1% INJ 10MG/ML (20 ML MDV) SQ ONE (14:27)
[2023-10-13] MEDS: VERAPAMIL SYRINGE (5 MG/10 ML) INTRAARTER ONE (14:30)
[2023-10-13] MEDS: fentaNYL (PF) 50 MCG/ML 2 ML AMP IVP ONE (14:30)
[2023-10-13] MEDS: MIDAZOLAM 2 MG/2 ML VIAL IVP ONE (14:30)
[2023-10-13] MEDS: HEPARIN SODIUM 1,000 UN/ML (10ML VL) IVP ONE (14:31)
[2023-10-13] MEDS: IOPAMIDOL-370 100ML BTL INJ ONE (14:38)
[2023-10-13] MEDS ORDERED: RX INFO: IV CONTRAST WAS GIVEN 1 EACH MISC MISCELLANE PRN (14:49)
--- NOTE | 2023-10-13 15:02 | P.CARDCATH ---
Description of Procedure: PROCEDURES PERFORMED: Left heart catheterization, bilateral coronary angiography, ultrasound guided arterial access INDICATION: cardiomyopathy CONSENT:I have discussed the risks, benefits and alternative therapies for the above-mentioned procedure and for both sedation/analgesia as well as necessary blood product administration, if indicated, as they pertain to this patient. The patient has indicated understanding and acceptance of the risks and procedures discussed. PROCEDURE: After the risks, benefits and alternatives of the above mentioned procedure explained in detail with the patient, informed consent was obtained. Patient was taken to the catheterization lab and prepped and draped in usual fashion. Ultrasound guidance was used to assess for arterial access. 1% lidocaine was used to anesthetize the right radial artery. A 6-Bahamian sheath was placed in the right radial artery using modified Seldinger technique and ultrasound guidance. Left coronary angiography was performed with a 5-Bahamian JL 3.5 catheter and right coronary angiography was performed with a 5-Bahamian FR5 catheter in various views. A 5-Bahamian FR5 catheter was inserted into the left ventricle and pressure measurements were obtained. The right radial sheath was removed and a TR band was placed with hemostasis achieved. The patient tolerate d the procedure well. Patient was transported back to the post catheterization holding area in stable condition. Conscious Sedation: Patient was monitored under the direct supervision of myself for conscious sedation using Versed and fentanyl for a total duration of 11 minutes HEMODYNAMICS: Ao: 122/98 LV: 128/5, LVEDP 15 SELECTIVE CORONARY ARTERIOGRAPHY: LEFT MAIN: The left main is a large caliber vessel which bifurcates into the LAD and circumflex. There is no significant stenosis. LEFT ANTERIOR DESCENDING CORONARY ARTERY: LAD is a large caliber vessel which wraps around to the apex. There is mild luminal irregularities of the proximal LAD and a mid LAD 30-40% stenosis. LEFT CIRCUMFLEX CORONARY ARTERY: Left circumflex is a moderate caliber vessel with mild luminal irregularities. The circumflex gives off a PLV branch and is codominant. RIGHT CORONARY ARTERY: The right coronary artery is a large caliber vessel which gives off a PDA branch and is a co dominant vessel. There is no significant stenosis. FINAL IMPRESSION: 1. Mild nonobstructive CAD as described above including mid LAD 30-40% stenosis not otherwise mild luminal irregularities 2. Mildly elevated left sided filling pressures PLAN: 1. Aggressive risk factor modification per most recent ACC/AHA guidelines. 2. Follow-up in the office in 1-2 weeks.
[2023-10-13] MEDS: SODIUM CHLORIDE 0.9% 1,000 ML IV SCH ×2 (15:42)
[2023-10-14] MEDS: APIXABAN 5 MG TAB PO SCH (09:04)
[2023-10-14 10:35] LABS: HCT 38.5 % (37.2-46.3); HGB 12.2 g/dL (12.0-15.0); MCH 33.5 pg (27.0-32.0); MCHC 31.7 g/dL (32.0-37.0); MCV 105.8 FL (80.0-97.0); Mean Platelet Volume 11.4 FL (9.5-12.2); NRBC Per 100 WBC 0 X 10*3/uL (0.00-0.01); Platelet Count 154 X 10*3/uL (140-440); RBC 3.64 X 10*6/uL (4.10-5.20); RDW 13.6 % (11.5-14.5); WBC 5.02 X 10*3/uL (4.50-10.00)
[2023-10-14 10:57] LABS: Magnesium 1.9 mg/dL (1.5-2.4)
[2023-10-14 10:58] LABS: BUN/Creat Ratio 19.92 Ratio (12.00-20.00); Blood Urea Nitrogen 25.9 mg/dL (9.0-27.0); Calcium 8.2 mg/dL (8.7-10.3); Carbon Dioxide 21.3 mmol/L (21.6-31.8); Chloride 113 mmol/L (96-109); Glucose 99 mg/dL (70-110); Potassium 3.7 mmol/L (3.5-5.5); Sodium 146 mmol/L (135-145)
[2023-10-14 11:06] LABS: Basophils # (A) 0.02 X 10*3/uL (0.00-0.10); Basophils % (A) 0.4 %; Eosinophils # (A) 0.07 X 10*3/uL (0.04-0.35); Eosinophils % (A) 1.4 %; Lymphocytes # (A) 1.62 X 10*3/uL (0.90-5.00); Lymphocytes % (A) 32.3 %; Monocytes # (A) 0.24 X 10*3/uL (0.20-1.00); Monocytes % (A) 4.8 %; Neutrophils # (A) 3.05 X 10*3/uL (1.80-7.70); Neutrophils % (A) 60.7 %; RBC Morphology Normal (Normal)
[2023-10-14] MEDS ORDERED: PROPOFOL 10 MG/ML 20 ML VIAL IV ONE (13:30)
[2023-10-14] MEDS ORDERED: ePHEDrine 50 MG/ML 1 ML VIAL ONE (13:30)
[2023-10-14] MEDS ORDERED: LIDOCAINE 1% INJ 10MG/ML (20 ML MDV) ONE (13:30)
[2023-10-14] MEDS: BENZOCAINE SPRAY 1 CAN TOPICAL ONE (13:35)
[2023-10-14] MEDS: IV FLUID CONTINUATION 1,000 ML IV ONE (13:38)
--- NOTE | 2023-10-14 14:59 | P.TEE ---
Description of Procedure(s): Procedure performed: Transesophageal Echocardiogram with color flow doppler, pulsed wave doppler and continuous wave doppler, synchronized cardioversion Moderate conscious sedation: Moderate conscious sedation was supplied by anesthesia, see separate report. Complications: none Indications: persistent atrial fibrillation PROCEDURE: After the risks, benefits and alternatives of the above mentioned procedure was explained in detail with the patient, informed consent was obtained. Patient was brought to the lab in a fasting state. Patient was given sedation by anesthesia, see separate report. The throat was sprayed with Hurricane to anesthetize the throat. A lubricated Omni probe was then introduced into the esophagus and stomach and multiple views were obtained. 2D echo with color flow doppler, pulsed wave doppler and continuous wave doppler was utilized. Agitated saline bubbles were injected to assess for any intra- atrial shunt. The probe was then removed. There was no thrombus noted and therefore patient underwent synchronized cardioversion x 2 with 200J with resultant sinus rhythm after second cardioversion. Patient tolerated the procedure well. Patient was transferred to the post procedure area in stable and satisfactory condition. FINDINGS: 1. The aortic valve is tricuspid and function normally with mild aortic sclerosis. 2. The mitral valve appears be normal with mild regurgitation. 3. Tricuspid valve has mild to moderate tricuspid regurgitation 4. The interatrial septum is intact. No evidence of PFO. 5. Left atrial appendage is free of clot. There is smoke however no thrombus noted. 6. Left ventricular ejection fraction 20-25%
[2023-10-14 16:25] VITALS: TEMP 97.6
[2023-10-14 16:26] VITALS: RESP 16
[2023-10-14 17:15] VITALS: BP 107/72; PULSE 70
== END 2023-10-14 17:55 | disposition home or self-care (01) | DRG 287 ==
LOC: EC 14:02 → 6NMEDSUR 17:09 → OBSVTOIN 17:10 → 6NMEDSUR 20:25
PROVIDERS: ADMIT Hospitalist; ATTEND Hospitalist
DX: I11.0 Hypertensive heart disease with heart failure (principal); I48.19 Other persistent atrial fibrillation; E87.6 Hypokalemia; I50.22 Chronic systolic (congestive) heart failure; E78.5 Hyperlipidemia, unspecified; F32.A Depression, unspecified; E66.9 Obesity, unspecified; I07.1 Rheumatic tricuspid insufficiency; Z68.29 Body mass index [BMI] 29.0-29.9, adult; I44.7 Left bundle-branch block, unspecified; I25.5 Ischemic cardiomyopathy; I25.10 Atherosclerotic heart disease of native coronary artery without angina pectoris; F03.90 Unspecified dementia, unspecified severity, without behavioral disturbance, psychotic disturbance, mood disturbance, and anxiety; Z88.8 Allergy status to other drugs, medicaments and biological substances; Z79.899 Other long term (current) drug therapy; Z79.01 Long term (current) use of anticoagulants
CPT/HCPCS: 36415; 71046; 76937; 80048; 80053; 80061; 83735; 83880; 84132; 84484; 85025; 85610; 85730; 92960; 93005; 93312; 93320; 93325; 93458; 99285

== ENCOUNTER 2023-12-10 23:05 | Emergency (ER) | payer MEDICARE ==
[2023-12-10 23:14] VITALS: RESP 16; TEMP 97.9
[2023-12-11 00:19] LABS: Basophils % (A) 0 %; Eosinophils # (A) 0.1 k/uL (0-0.7); Eosinophils % (A) 1 %; HCT 37.7 % (34.0-46.0); HGB 12.7 gm/dL (11.4-16.0); Lymphocytes # (A) 1.7 k/uL (1.0-4.8); Lymphocytes % (A) 41 %; MCHC 33.7 g/dL (31.0-37.0); Macrocytosis Slight; Monocytes # (A) 0.2 k/uL (0-1.0); Monocytes % (A) 6 %; Neutrophils # (A) 1.9 k/uL (1.3-7.7); Neutrophils % (A) 48 %; Platelet Count 167 k/uL (150-450); RBC 3.62 m/uL (3.80-5.40)
[2023-12-11 00:29] LABS: ALT 26 U/L (4-34); AST 38 U/L (14-36); African American GFR (CKD) 78 (>60 ml/min/1.73 sqM); Alkaline Phosphatase 106 U/L (38-126); Amylase 68 U/L (30-110); Anion Gap 4 mmol/L; Blood Urea Nitrogen 17 mg/dL (7-17); Calcium 9.4 mg/dL (8.4-10.2); Carbon Dioxide 28 mmol/L (22-30); Chloride 108 mmol/L (98-107); Glucose 88 mg/dL (74-99); Lipase 162 U/L (23-300); Non-African American GFR(CKD) 68 (>60 ml/min/1.73 sqM); Potassium 3.6 mmol/L (3.5-5.1); Sodium 140 mmol/L (137-145); Total Bilirubin 0.5 mg/dL (0.2-1.3); Total Protein 6.1 g/dL (6.3-8.2)
--- NOTE | 2023-12-11 02:29 | ED ---
General Adult HPI - General Chief complaint: Abdominal Pain Stated complaint: Breast Pain Time Seen by Provider: 12/10/23 23:21 Source: patient Mode of arrival: wheelchair Limitations: no limitations - History of Present Illness Initial comments: This patient is a 78-year-old woman who presents with complaint that she is having burning sensations along the bilateral sides of the torso and into the breasts. The patient states that has come on over the course of the day. She has not noted having a rash. She describes it as being sensitive to anything touching her skin. She has not noted any relieving factors. Patient denies rash. No fever or chills Onset/Timin -: days(s) Location: chest Radiation: non-radiation Quality: burning Consistency: constant Improves with: none Worsens with: other (Palpation) Associated Symptoms: denies other symptoms - Related Data Home Medications Medication Instructions Recorded Confirmed Amiodarone [Cordarone] 200 mg PO BID 10/12/23 10/12/23 Apixaban [Eliquis] 5 mg PO BID 10/12/23 10/12/23 Atorvastatin [Lipitor] 20 mg PO HS 10/12/23 10/12/23 Donepezil [Aricept] 5 mg PO HS 10/12/23 10/12/23 Furosemide [Lasix] 20 mg PO BID 10/12/23 10/12/23 Memantine [Namenda] 10 mg PO BID 10/12/23 10/12/23 Metoprolol Succinate [Metoprolol 25 mg PO DAILY 10/12/23 10/12/23 Succinate ER] Venlafaxine HCl [Effexor XR] 75 mg PO DAILY 10/12/23 10/12/23 traZODone HCL [Desyrel] 50 mg PO HS 10/12/23 10/12/23 Previous Rx's Medication Instructions Recorded Levothyroxine Sodium [Synthroid] 25 mcg PO DAILY #20 tab 12/11/23 Allergies Allergy/AdvReac Type Severity Reaction Status Date / Time duloxetine AdvReac "Lots' of Verified 12/10/23 23:14 side effects, brand is ok Review of Systems ROS Statement: Those systems with pertinent positive or pertinent negative responses have been documented in the HPI. ROS Other: All systems not noted in ROS Statement are negative. Constitutional: Denies: fever, chills Respiratory: Denies: cough, dyspnea Cardiovascular: Reports: as per HPI, chest pain. Denies: palpitations, dyspnea on exertion, orthopnea, edema, syncope Endocrine: Reports: fatigue Gastrointestinal: Denies: abdominal pain, nausea, vomiting, diarrhea Genitourinary: Denies: dysuria Musculoskeletal: Denies: back pain Skin: Denies: rash Neurological: Denies: headache, weakness Past Medical History Past Medical History: Hyperlipidemia, Hypertension History of Any Multi-Drug Resistant Organisms: None Reported Past Surgical History: No Surgical Hx Reported Past Psychological History: No Psychological Hx Reported Smoking Status: Never smoker Past Alcohol Use History: None Reported Past Drug Use History: None Reported General Exam Limitations: no limitations General appearance: alert, in no apparent distress Head exam: Present: atraumatic, normocephalic Eye exam: Present: normal appearance. Absent: scleral icterus, conjunctival injection ENT exam: Present: normal oropharynx Neck exam: Present: normal inspection Respiratory exam: Present: normal lung sounds bilaterally. Absent: respiratory distress, wheezes, rales, rhonchi, stridor, chest wall tenderness, accessory muscle use Cardiovascular Exam: Present: regular rate, normal rhythm, normal heart sounds. Absent: systolic murmur, diastolic murmur, rubs, gallop GI/Abdominal exam: Present: soft. Absent: distended, tenderness, guarding, rebound, rigid, mass Extremities exam: Present: normal inspection, normal capillary refill. Absent: pedal edema, calf tenderness Back exam: Present: normal inspection. Absent: CVA tenderness (R), CVA tenderness (L) Neurological exam: Present: alert Skin exam: Present: warm, dry, intact, normal color. Absent: rash Course Vital Signs 12/10/23 12/11/23 12/11/23 23:10 01:34 02:50 Temperature 97.9 F Pulse Rate 71 53 L 60 Respiratory 16 16 16 Rate Blood Pressure 111/63 141/72 140/65 O2 Sat by Pulse 96 96 96 Oximetry Medical Decision Making - Medical Decision Making Was pt. sent in by a medical professional or institution (, PA, [employer], urgent care, hospital, or long term...) When possible be specific @ -[No] Did you speak to anyone other than the patient for history (EMS, parent, family, police, friend...)? What history was obtained from this source @ -[No] Did you review nursing and triage notes (agree or disagree)? Why? @ -[I reviewed and agree with nursing and triage notes] Were old charts reviewed (outside hosp., previous admission, EMS record, old EKG, old radiological studies, urgent care reports/EKG's, long term records)? Report findings @ -[No old charts were reviewed] Differential Diagnosis (chest pain, altered mental status, abdominal pain women, abdominal pain men, vaginal bleeding, weakness, fever, dyspnea, syncope, headache, dizziness, GI bleed, back pain, seizure, CVA, palpatations, mental health, musculoskeletal)? @ -[Differential diagnosis for burning of the skin includes EKG interpreted by me (3pts min.). @ -[As above] X-rays interpreted by me (1pt min.). @ -[None done] CT interpreted by me (1pt min.). @ -[None done] U/S interpreted by me (1pt. min.). @ -[None done] What testing was considered but not performed or refused? (CT, X-rays, U/S, labs)? Why? @ -[None] What meds were considered but not given or refused? Why? @ -[None] Did you discuss the management of the patient with other professionals (pro fessionals i.e. , PA, [employer], lab, RT, psych nurse, adoption social worker, bass fisher, teacher, media liaison officer, returned case inspector)? Give summary @ -[No] Was smoking cessation discussed for >3mins.? @ -[No] Was critical care preformed (if so, how long)? @ -[No] Were there social determinants of health that impacted care today? How? (Homelessness, low income, unemployed, alcoholism, drug addiction, transportation, low edu. Level, literacy, decrease access to med. care, detention, rehab)? @ -[No] Was there de-escalation of care discussed even if they declined (Discuss DNR or withdrawal of care, Hospice)? DNR status @ -[No] What co-morbidities impacted this encounter? (DM, HTN, Smoking, COPD, CAD, Cancer, CVA, ARF, Chemo, Hep., AIDS, mental health diagnosis, sleep apnea, morbid obesity)? @ -[None] Was patient admitted / discharged? Hospital course, mention meds given and route, prescriptions, significant lab abnormalities, going to OR and other pertinent info. @ -[Patient is a 78-year-old woman here to have evaluation for burning of the skin worst on the trunk. The exam does not reveal etiology labs do show patient has hypothyroidism and patient will be started on medication and have follow-up for further investigation if the symptoms do not resolve. Discussed appropriate further care as well as return parameters Undiagnosed new problem with uncertain prognosis? @ -[No] Drug Therapy requiring intensive monitoring for toxicity (Heparin, Nitro, Insulin, Cardizem)? @ -[No] Were any procedures done? @ -[No] Diagnosis/symptom? @ -[Hypothyroidism, suspect chronic Acute, or Chronic, or Acute on Chronic? @ -[default] Uncomplicated (without systemic symptoms) or Complicated (systemic symptoms)? @ -[default] Side effects of treatment? @ -[No] Exacerbation, Progression, or Severe Exacerbation? @ -[No] Poses a threat to life or bodily function? How? (Chest pain, [place], [place], pneumonia, PE, COPD, DKA, ARF, appy, cholecystitis, CVA, Diverticulitis, Homicidal, Suicidal, threat to staff... and all critical care pts) @ -[No] - Lab Data Result diagrams: 12/11/23 00:06 12/11/23 00:06 Lab Results 12/11/23 12/11/23 Range/Units 00:06 00:06 WBC 4.0 (3.8-10.6) k/uL RBC 3.62 L (3.80-5.40) m/uL Hgb 12.7 (11.4-16.0) gm/dL Hct 37.7 (34.0-46.0) % MCV 104.0 H (80.0-100.0) fL MCH 35.0 (25.0-35.0) pg MCHC 33.7 (31.0-37.0) g/dL RDW 14.0 (11.5-15.5) % Plt Count 167 (150-450) k/uL MPV 8.0 Neutrophils % 48 % Lymphocytes % 41 % Monocytes % 6 % Eosinophils % 1 % Basophils % 0 % Neutrophils # 1.9 (1.3-7.7) k/uL Lymphocytes # 1.7 (1.0-4.8) k/uL Monocytes # 0.2 (0-1.0) k/uL Eosinophils # 0.1 (0-0.7) k/uL Basophils # 0.0 (0-0.2) k/uL Macrocytosis Slight Sodium 140 (137-145) mmol/L Potassium 3.6 (3.5-5.1) mmol/L Chloride 108 H (98-107) mmol/L Carbon Dioxide 28 (22-30) mmol/L Anion Gap 4 mmol/L BUN 17 (7-17) mg/dL Creatinine 0.83 (0.52-1.04) mg/dL Est GFR (CKD-EPI)AfAm 78 (>60 ml/min/1.73 sqM) Est GFR (CKD-EPI)NonAf 68 (>60 ml/min/1.73 sqM) Glucose 88 (74-99) mg/dL Calcium 9.4 (8.4-10.2) mg/dL Total Bilirubin 0.5 (0.2-1.3) mg/dL AST 38 H (14-36) U/L ALT 26 (4-34) U/L Alkaline Phosphatase 106 (38-126) U/L Total Protein 6.1 L (6.3-8.2) g/dL Albumin 4.0 (3.5-5.0) g/dL Amylase 68 (30-110) U/L Lipase 162 (23-300) U/L TSH 17.700 H (0.465-4.680) mIU/L Disposition Clinical Impression: Hypothyroidism Disposition: HOME SELF-CARE Condition: Fair Instructions (If sedation given, give patient instructions): Hypothyroidism (ED) Prescriptions: Levothyroxine Sodium [Synthroid] 25 mcg PO DAILY #20 tab Is patient prescribed a controlled substance at d/c from ED?: No Referrals: Price Mcginnis DO [Primary Care Provider] - 1-2 days
[2023-12-11 02:52] VITALS: BP 140/65; PULSE 60
== END 2023-12-11 02:53 | disposition home or self-care (01) ==
LOC: EC 23:05
DX: E03.9 Hypothyroidism, unspecified (principal); Z88.8 Allergy status to other drugs, medicaments and biological substances
CPT/HCPCS: 36415; 80053; 82150; 83690; 84443; 85025; 99284

== ENCOUNTER → 2024-04-25 | Outpatient (CLI) | payer OTHER ==
[2024-04-25 21:26] LABS: T4, Free (Free Thyroxine) 0.89 ng/dL (0.80-1.80)
== END | disposition home or self-care (01) ==
LOC: LABWHC1 14:47
PROVIDERS: ATTEND Internal Medicine
DX: I48.0 Paroxysmal atrial fibrillation (principal)
CPT/HCPCS: 36415; 84439; 84443; 84450; 84460